=== PATIENT | female | born 1970 | race Caucasian/White ===

== ENCOUNTER → 2020-06-14 | Outpatient (CLI) | payer BC ==
[~2020-06-14] MED LIST: HYDROCODON-ACE1 EAC4 PO; NAPROSYN EC 50500 MG PO; PROTONIX40 MG PO; SYNTHROID88 MCG PO
== END ==
LOC: KOH-I 14:10
DX: M79.89 Other specified soft tissue disorders (principal)
CPT/HCPCS: 93971

== ENCOUNTER → 2020-08-08 | Outpatient (CLI) | payer BC ==
[2020-08-08 10:31] LABS: HEMOGLOBIN 13.8 gm/dl (12.3-15.3); RED BLOOD COUNT 4.95 M/UL (4.00-5.10); WHITE BLOOD COUNT 6.1 K/UL (4.5-11.0)
== END ==
LOC: OPSV2 09:30
PROVIDERS: Obstetrics & Gynecology
DX: Z01.818 Encounter for other preprocedural examination (principal); L02.214 Cutaneous abscess of groin
CPT/HCPCS: 36415; 71046; 81001; 85025; 93005

== ENCOUNTER → 2020-08-16 | Day surgery (SDC) | payer BC | END | disposition home or self-care (01) | LOC: OR 09:35 | DX: L02.214 Cutaneous abscess of groin (principal); E03.9 Hypothyroidism, unspecified; E78.00 Pure hypercholesterolemia, unspecified; G47.30 Sleep apnea, unspecified; E66.01 Morbid (severe) obesity due to excess calories; Z87.891 Personal history of nicotine dependence; Z68.31 Body mass index [BMI] 31.0-31.9, adult; Z88.5 Allergy status to narcotic agent; Z79.899 Other long term (current) drug therapy | CPT/HCPCS: J0690; J1100; J2001; J2250; J2405; J2704; J2795; J3010; J7120 ==

== ENCOUNTER → 2020-08-24 | Outpatient (CLI) | payer BC | LOC: US 13:12 | DX: M79.662 Pain in left lower leg (principal) | CPT/HCPCS: 93971 ==

== ENCOUNTER 2020-12-04 18:17 | Emergency (ER) | payer BC ==
[~2020-12-04] VITALS: Ht 172.7 cm; Wt 89.8 kg
== END 2020-12-04 20:22 | disposition home or self-care (01) ==
LOC: ER1 18:17
DX: Z23 Encounter for immunization (principal); U07.1 COVID-19
CPT/HCPCS: 99281; M0243

== ENCOUNTER → 2021-06-15 | Outpatient (CLI) | payer BC | LOC: KOH-I 15:30 | DX: R20.2 Paresthesia of skin (principal) | CPT/HCPCS: 70450 ==